=== PATIENT | male | born 1955 | race African-American/Black ===

== ENCOUNTER 2020-04-13 06:55 | Emergency (ER) | payer OTHER, SELFPAY ==
[2020-04-13] MEDS ORDERED: METOPROLOL TARTRATE 5 MG/5 ML INJ IV ONE (07:18)
[2020-04-13 07:21] LABS: Absolute Lymphocytes (CBC) 2.5 K/uL (0.7-4.9); Basophils % 1.7 % (0-1.3); Hematocrit 42.5 % (39.6-49.0); Lymphocytes % 34.7 % (15.3-44.8); MPV 8.8 fL (7.6-11.3); RBC Red Blood Cell Count 5.61 M/uL (4.33-5.43)
[2020-04-13 07:30] LABS: Protime INR 1.09
[2020-04-13] MEDS ORDERED: dilTIAZem HCL 25 MG/5 ML VIAL IV ONE ×2 (07:51→08:10)
[2020-04-13 08:14] LABS: Albumin 3.2 g/dL (3.4-5.0); Bilirubin Direct 0.1 mg/dL (0-0.2); Bilirubin Total 0.4 mg/dL (0.2-1.0); Magnesium 2.1 mg/dL (1.8-2.4); Protein, Total 7.7 g/dL (6.4-8.2); Troponin (Emerg Dept Use Only) 0.11 ng/mL (0.0-0.045)
--- NOTE | 2020-04-13 08:27 | RAD REPORT ---
EXAM DESCRIPTION: [place] Single View04/13/2020 7:45 am CLINICAL HISTORY: Chest pain COMPARISON: none FINDINGS: The lungs appear clear of acute infiltrate. The heart is normal size IMPRESSION: No acute abnormalities displayed
--- NOTE | 2020-04-13 08:27 | ER ---
Nurse's Notes [facility] Name: Taj Penaloza Age: 64 yrs Sex: Male : 1955 Arrival Date: 04/13/2020 Time: 07:01 Bed 16 Private MD: Diagnosis: Atrial fibrillation and flutter;Palpitations Presentation: 04/13 07:03 Ebola Screen: No symptoms or risks identified at this time. ea 07:03 Risk Assessment: Do you want to hurt yourself or someone else? Patient reports no ea desire to harm self or others. 07:13 Chief complaint: EMS states: OUT WORKING IN THE GARDEN, SUDDENLY FELT DIZZY AND LIGHT rv HEADED. DENIES ANY CHEST PAIN OR SOB. INITIAL HEART RATE AT 160s. GIVEN ADENOSINE 6MG IV. Coronavirus screen: Client denies travel out of the [place] in the last 14 days. Initial Sepsis Screen: Does the patient meet any 2 criteria? No. Patient's initial sepsis screen is negative. Does the patient have a suspected source of infection? No. Patient's initial sepsis screen is negative. Onset of symptoms was April 13, 2020 at 06:30. 07:13 Method Of Arrival: EMS: [facility] rv 07:13 Acuity: SEJAL 2 rv Triage Assessment: 07:19 General: Appears comfortable, Behavior is calm, cooperative. Pain: Denies pain. Neuro: rv Level of Consciousness is awake, alert, obeys commands, Oriented to person, place, time, situation. Cardiovascular: Rhythm is SVT. Cardiovascular: Chest pain is denied. Respiratory: Airway is patent Respiratory effort is even, unlabored. Derm: Skin is intact. Historical: - Allergies: 07:19 No Known Allergies; rv - Home Meds: : sildenafil oral 1 tab oral 100 mg as needed [Active]; simvastatin 80 mg Oral tab 80 mg rv daily [Active]; tamsulosin 0.4 mg oral cp24 1 cap once daily [Active]; - PMHx: : Hypertension; High Cholesterol; rv - PSHx: : None; rv - Immunization history:: Adult Immunizations up to date. - Social history:: Smoking status: Patient denies any tobacco usage or history of. Screenin:02 Abuse screen: Denies threats or abuse. Nutritional screening: No deficits noted. ea Tuberculosis screening: No symptoms or risk factors identified. Fall Risk IV access (20 points). Assessment: 07:20 General: Appears in no apparent distress. comfortable, well groomed, Behavior is calm, ph cooperative, appropriate for age, Denies fever, feeling ill. Pain: Denies pain. Neuro: Level of Consciousness is awake, alert, obeys commands, Oriented to person, place, time, situation, Reports dizziness, Denies weakness blurred vision headache. Cardiovascular: Reports fatigue, lightheadedness, Denies chest pain, shortness of breath, Capillary refill < 3 seconds in bilateral fingers Patient's skin is warm and dry. Respiratory: Airway is patent Respiratory effort is even, unlabored, Respiratory pattern is regular, symmetrical. GI: No signs and/or symptoms were reported involving the gastrointestinal system. Derm: Skin is intact, is healthy with good turgor, Skin is pink, warm \T\ dry. Musculoskeletal: Circulation, motion, and sensation intact. Range of motion: intact in all extremities. 07:29 Reassessment: Patient appears in no apparent distress at this time. Patient and/or ph family updated on plan of care and expected duration. Pain level reassessed. Patient is alert, oriented x 3, equal unlabored respirations, skin warm/dry/pink. Pt awake and alert, talking on cell phone, HR remains elevated at 152 after Lopressor 5mg x1, BP 101/80, ERP notified of vitals, will administer a different medication in attempt to lower HR, see MAR. 08:30 Reassessment: Patient appears in no apparent distress at this time. Patient and/or ph family updated on plan of care and expected duration. Pain level reassessed. Patient is alert, oriented x 3, equal unlabored respirations, skin warm/dry/pink. 09:41 Reassessment: Patient appears in no apparent distress at this time. Patient and/or ph family updated on plan of care and expected duration. Pain level reassessed. Patient is alert, oriented x 3, equal unlabored respirations, skin warm/dry/pink. Awaiting acceptance at [facility] for transfer, pt resting quietly, denies pain at this time. 12:27 Reassessment: Patient appears in no apparent distress at this time. Patient and/or ph family updated on plan of care and expected duration. Pain level reassessed. Patient is alert, oriented x 3, equal unlabored respirations, skin warm/dry/pink. Attempted to call report to [facility], no answer at number provided, will attempt again. 12:35 Reassessment: Report called to JINA Fatima at [facility], awaiting EMS for transfer. ph 13:27 Reassessment: [facility] at bedside, report given to EMT-P, pt transferred to [facility]. ph Vital Signs: 07:13 BP 112 / 78; Pulse 158; Resp 21; Temp 97.1; Pulse Ox 96% ; Weight 145.15 kg; rv 07:30 BP 101 / 80; Pulse 146; Resp 18; Pulse Ox 95% on R/A; ph 08:31 BP 94 / 75; Pulse 130; Resp 18; Pulse Ox 97% on 2 lpm NC; ph 09:41 BP 95 / 51; Pulse 151; Resp 16; Pulse Ox 98% on 2 lpm NC; ph 09:54 BP 110 / 83; Pulse 132; Resp 18; Pulse Ox 96% on 2 lpm NC; ph 10:56 BP 129 / 96; Pulse 118; Resp 18; Pulse Ox 98% on 2 lpm NC; ph 11:47 BP 103 / 79; Pulse 122; Resp 20; Pulse Ox 98% on 2 lpm NC; ph 12:15 BP 113 / 70; Pulse 102; Resp 22; Temp 97.5; Pulse Ox 97% on 2 lpm NC; ph 13:24 BP 102 / 57; Pulse 148; Resp 18; Pulse Ox 97% on 2 lpm NC; ph ED Course: 07:01 Patient arrived in ED. rv 07:02 Patient has correct armband on for positive identification. Bed in low position. Call ea light in reach. Side rails up X2. monitoring analyst on. Pulse ox on. NIBP on. 07:03 Arm band placed on right wrist. Patient placed in an exam room, on a stretcher, on ea playground monitor, on pulse oximetry. 07:08 Antoinette Hdz RN is Primary Nurse. ph 07:16 Triage completed. rv 07:18 Alexis Jean MD is Attending Physician. kdr 07:48 XRAY Chest (1 view) In Process Unspecified. EDMS 08:29 initiated a transfer with Debbie from the [facility] transfer center. eb 08:42 faxed over patient records as requested by transfer center/ per Debbie a nurse will call eb back to do nurse to nurse after the chart is reviewed. 10:56 No provider procedures requiring assistance completed. Patient transferred, IV remains ph in place. 11:[address] Doe the emergency room doctor information technology project manager for the [facility] with Dr. Miranda shankar for patient transfer consultation. 11:50 administrative approval given by Renita Barber En/ patient has been accepted to the [facility]. 12:57 Inserted saline lock: 18 gauge in right antecubital area, using aseptic technique. dh3 Administered Medications: 07:20 Drug: Lopressor 5 mg Route: IVP; Site: left antecubital; ph 13:28 Follow up: Response: No adverse reaction; Cardiac rhythm is unchanged ph 08:02 Drug: Diltiazem 5 mg Route: IVP; Site: left hand; ph 08:12 Follow up: Response: No adverse reaction ph 08:54 Drug: Heparin (CO-Bolus No thrombolytic) - HEParin 60 units/kg {Co-Signature: hb ph (Doris Cardenas RN).} Route: IVP; Site: left wrist; 13:28 Follow up: Response: No adverse reaction ph 08:56 Drug: Heparin (CO Drip) 12 units/kg/hr - (HEParin 42135 units, D5W 500 ml) ph {Co-Signature: hb (Doris Cardenas RN).} Route: IV; Rate: calculated rate; Site: left wrist; 13:28 Follow up: IV Status: Infusion continued upon transfer ph 09:40 Drug: Diltiazem 5 mg Route: IVP; Site: left wrist; ph 09:45 Follow up: Response: No adverse reaction ph 10:30 Drug: Diltiazem 10 mg Route: IVP; Site: left wrist; ph 13:27 Follow up: Response: No adverse reaction ph 13:05 Drug: niCARdipine (25mg/250mL) 5 mg/h {Note: iniated at 2 mg/h.} Route: IV; Rate: ph calculated rate; Site: right antecubital; 13:27 Follow up: Response: No adverse reaction; IV Status: Order to discontinue infusion ph Outcome: 08:26 ER care complete, transfer ordered by . kdr 13:29 Transferred by ground EMS [facility]. to [facility] Transfer ph form completed. X-rays sent w/ patient. 13:29 Condition: stable 13:29 Instructed on the need for transfer. 13:33 Patient left the ED. ph Signatures: Dispatcher [employer] Alexis Lemons MD MD kdr Hall, Patricia RN RN [place] [id number] Lili Hernandez RN RN ea Botello, Elizabeth eb Vicente, Ronaldo, RN RN rv Heather Baxter RN hb
--- NOTE | 2020-04-13 08:27 | EDPHYS ---
Physician Documentation [facility] Name: Taj Penaloza Age: 64 yrs Sex: Male : 1955 Arrival Date: 04/13/2020 Time: 07:01 Bed 16 Private MD: ED Physician Alexis Jean HPI: 04/13 08:26 This 64 yrs old Black Male presents to ER via EMS with complaints of AFIB W/RVR. kdr 08:26 The patient presents with a history of irregular heart beat, heart racing. Context: The kdr symptoms occur at rest, during sleep. Onset: The symptoms/episode began/occurred suddenly, Thursday. Duration: The patient or guardian reports multiple episodes. Modifying factors: The symptoms are aggravated by nothing. The symptoms are alleviated by nothing. Associated signs and symptoms: Pertinent positives: chest pain, lightheadedness, SOB. Severity of symptoms: At their worst the symptoms were mild moderate just prior to arrival, this morning, in the emergency department the symptoms are unchanged. The patient has not experienced similar symptoms in the past. The patient has not recently seen a physician. The patient states that he felt he had mild heat stroke on Thursday when he noted his heart racing and chest pressure. He tried to rest and hydrate himself and his symptoms seemed to intermittently improve but hen return. He had gone to work today and thought he might be able to last until Thursday when [facility] persisted. Instead, his symptoms persisted and he ask to be evaluated by the on site medical personnel at work. They discovered him to have a HR of 160 and transported him to the ED while giving him 6 mg of Adenosine. They did not get any improvement with the medication and the patient stated that his symptoms seemed to get worse. He arrived in stable condition and alert and oriented . Historical: - Allergies: 07:19 No Known Allergies; rv - Home Meds: : sildenafil oral 1 tab oral 100 mg as needed [Active]; simvastatin 80 mg Oral tab 80 mg rv daily [Active]; tamsulosin 0.4 mg oral cp24 1 cap once daily [Active]; - PMHx: 07:19 Hypertension; High Cholesterol; rv - PSHx: :19 None; rv - Immunization history:: Adult Immunizations up to date. - Social history:: Smoking status: Patient denies any tobacco usage or history of. ROS: 08:26 Constitutional: Negative for fever, chills, and weight loss, Eyes: Negative for injury, kdr pain, redness, and discharge, ENT: Negative for injury, pain, and discharge, Neck: Negative for injury, pain, and swelling, Respiratory: Negative for shortness of breath, cough, wheezing, and pleuritic chest pain, Abdomen/GI: Negative for abdominal pain, nausea, vomiting, diarrhea, and constipation, Back: Negative for injury and pain, : Negative for injury, bleeding, discharge, and swelling, MS/Extremity: Negative for injury and deformity, Skin: Negative for injury, rash, and discoloration, Neuro: Negative for headache, weakness, numbness, tingling, and seizure activity. Psych: Negative for depression, anxiety, suicide ideation, homicidal ideation, and hallucinations, Allergy/Immunology: Negative for hives, rash, and allergies, Endocrine: Negative for neck swelling, polydipsia, polyuria, polyphagia, and marked weight changes, Hematologic/Lymphatic: Negative for swollen nodes, abnormal bleeding, and unusual bruising. 08:26 Cardiovascular: Positive for chest pain, palpitations, Negative for edema, orthopnea. Exam: 08:26 Constitutional: This is a well developed, well nourished patient who is awake, alert, kdr and in no acute distress. Head/Face: Normocephalic, atraumatic. Eyes: Pupils equal round and reactive to light, extra-ocular motions intact. Lids and lashes normal. Conjunctiva and sclera are non-icteric and not injected. Cornea within normal limits. Periorbital areas with no swelling, redness, or edema. Neck: Trachea midline, no thyromegaly or masses palpated, and no cervical lymphadenopathy. Supple, full range of motion without nuchal rigidity, or vertebral point tenderness. No Meningismus. Chest/axilla: Normal chest wall appearance and motion. Nontender with no deformity. No lesions are appreciated. Respiratory: Lungs have equal breath sounds bilaterally, clear to auscultation and percussion. No rales, rhonchi or wheezes noted. No increased work of breathing, no retractions or nasal flaring. Abdomen/GI: Soft, non-tender, with normal bowel sounds. No distension or tympany. No guarding or rebound. No evidence of tenderness throughout. Back: No spinal tenderness. No costovertebral tenderness. Full range of motion. Skin: Warm, dry with normal turgor. Normal color with no rashes, no lesions, and no evidence of cellulitis. MS/ Extremity: Pulses equal, no cyanosis. Neurovascular intact. Full, normal range of motion. Neuro: Awake and alert, GCS 15, oriented to person, place, time, and situation. Cranial nerves II-XII grossly intact. Motor strength 5/5 in all extremities. Sensory grossly intact. Cerebellar exam normal. Normal gait. Psych: Awake, alert, with orientation to person, place and time. Behavior, mood, and affect are within normal limits. 08:26 Cardiovascular: Rate: tachycardic, actual rate is 155 bpm, Rate is variable, Rhythm: irregular, Pulses: no pulse deficits are appreciated, Heart sounds: normal, Edema: is not appreciated. 09:55 ECG was reviewed by the Attending Physician. kdr Vital Signs: 07:13 BP 112 / 78; Pulse 158; Resp 21; Temp 97.1; Pulse Ox 96% ; Weight 145.15 kg; rv 07:30 BP 101 / 80; Pulse 146; Resp 18; Pulse Ox 95% on R/A; ph 08:31 BP 94 / 75; Pulse 130; Resp 18; Pulse Ox 97% on 2 lpm NC; ph 09:41 BP 95 / 51; Pulse 151; Resp 16; Pulse Ox 98% on 2 lpm NC; ph 09:54 BP 110 / 83; Pulse 132; Resp 18; Pulse Ox 96% on 2 lpm NC; ph 10:56 BP 129 / 96; Pulse 118; Resp 18; Pulse Ox 98% on 2 lpm NC; ph 11:47 BP 103 / 79; Pulse 122; Resp 20; Pulse Ox 98% on 2 lpm NC; ph 12:15 BP 113 / 70; Pulse 102; Resp 22; Temp 97.5; Pulse Ox 97% on 2 lpm NC; ph 13:24 BP 102 / 57; Pulse 148; Resp 18; Pulse Ox 97% on 2 lpm NC; ph MDM: 08:26 Patient medically screened. kdr 08:26 Data reviewed: vital signs, nurses notes, lab test result(s), EKG, radiologic studies. kdr Counseling: I had a detailed discussion with the patient and/or guardian regarding: the historical points, exam findings, and any diagnostic results supporting the discharge/admit diagnosis, lab results, radiology results, the need for further work-up and treatment in the hospital, the need to transfer to another facility. 08:34 ED course: The patient was initially given B-noemi with SBP of 112 (5 mg). Rate did kdr not improve but BP decreased. Chenged to low does Diltiazem which has done a better job of controlling the rate. BP has remained low. 04/13 07:03 Order name: Basic Metabolic Panel; Complete Time: 08:41 04/13 07:03 Order name: CBC with Diff; Complete Time: 08:41 04/13 07:03 Order name: LFT's; Complete Time: 08:41 04/13 07:03 Order name: Magnesium; Complete Time: 08:41 04/13 07:03 Order name: NT PRO-BNP; Complete Time: 08:41 04/13 07:03 Order name: PT-INR; Complete Time: 09:38 04/13 07:03 Order name: Troponin (emerg Dept Use Only); Complete Time: 08:41 04/13 07:03 Order name: XRAY Chest (1 view); Complete Time: 08:41 04/13 08:45 Order name: PTT, Activated Partial Thromb; Complete Time: 09:38 EDMS 04/13 08:48 Order name: Ptt, Activated ph 04/13 07:03 Order name: EKG; Complete Time: 07:04 04/13 07:03 Order name: Cardiac monitoring; Complete Time: 07:04/13 07:03 Order name: EKG - Nurse/Tech; Complete Time: 07:04/13 07:03 Order name: IV Saline Lock; Complete Time: 07:13 04/13 07:03 Order name: Labs collected and sent; Complete Time: 07:13 04/13 07:03 Order name: O2 Per Protocol; Complete Time: 07:04/13 07:03 Order name: O2 Sat Monitoring; Complete Time: 07:13 rv EC:55 Rate is 158 beats/min. Rhythm is regular, Sinus tachycardia with No ectopy. QRS [place] is kdr Normal. AK interval is normal. QRS interval is normal. QT interval is normal. Clinical impression: NSR w/ Non-specific ST/T Changes. 09:55 Rate is 119 beats/min. Rhythm is regular, A flutter with No ectopy. QRS [place] is Normal. kdr [place] interval is normal. QRS interval is normal. Clinical impression: Atrial Flutter, Sinus arrythmia, No evidence of ischemia, and Aatarial fib/flutter witwh variable response. 09:55 Rate is 146 beats/min. Rhythm is regular, A fib with No ectopy. QRS [place] is Normal. AK kdr interval is normal. Clinical impression: Atrial Fibrillation. Administered Medications: 07:20 Drug: Lopressor 5 mg Route: IVP; Site: left antecubital; ph 13:28 Follow up: Response: No adverse reaction; Cardiac rhythm is unchanged ph 08:02 Drug: Diltiazem 5 mg Route: IVP; Site: left hand; ph 08:12 Follow up: Response: No adverse reaction ph 08:54 Drug: Heparin (ND-Bolus No thrombolytic) - HEParin 60 units/kg {Co-Signature: hb ph (Doris Cardenas RN).} Route: IVP; Site: left wrist; 13:28 Follow up: Response: No adverse reaction ph 08:56 Drug: Heparin (ND Drip) 12 units/kg/hr - (HEParin 85420 units, D5W 500 ml) ph {Co-Signature: hb (Doris Cardenas RN).} Route: IV; Rate: calculated rate; Site: left wrist; 13:28 Follow up: IV Status: Infusion continued upon transfer ph 09:40 Drug: Diltiazem 5 mg Route: IVP; Site: left wrist; ph 09:45 Follow up: Response: No adverse reaction ph 10:30 Drug: Diltiazem 10 mg Route: IVP; Site: left wrist; ph 13:27 Follow up: Response: No adverse reaction ph 13:05 Drug: niCARdipine (25mg/250mL) 5 mg/h {Note: iniated at 2 mg/h.} Route: IV; Rate: ph calculated rate; Site: right antecubital; 13:27 Follow up: Response: No adverse reaction; IV Status: Order to discontinue infusion ph Disposition: 04/13/20 08:26 Transfer ordered to [facility]. Diagnosis are Atrial fibrillation and flutter, Palpitations. - Reason for transfer: Higher level of care. - Accepting physician is [facility]: Dr. Velia Fabian. - Condition is Serious. - Problem is new. - Symptoms have improved. Signatures: Dispatcher [employer] EDNJ Alexis Jean MD MD kdr Antoinette Hdz, RN RN ph Doris Cardenas, RN RN Lili Hernandez RN RN ea Evgeny Oconnell RN RN Doris Cardenas RN Corrections: (The following items were deleted from the chart) 11:17 08:49 PTT, Activated Partial Thromb ordered. EDNJ EDNJ 11:50 08:26 04/13/2020 08:26 Transfer ordered to [facility]. Diagnosis kdr is Atrial fibrillation and flutter; Palpitations. Reason for transfer: Higher level of care. Accepting physician is [facility]. Condition is Serious. Problem is new. Symptoms have improved. kdr 13:33 11:50 04/13/2020 08:26 Transfer ordered to [facility]. Diagnosis ph is Atrial fibrillation and flutter; Palpitations. Reason for transfer: Higher level of care. Accepting physician is [facility]: Dr. Velia Fabian. Condition is Serious. Problem is new. Symptoms have improved. kdr
[2020-04-13] MEDS ORDERED: HEPARIN 5000 UNIT/ML 1 ML VIAL ONE (08:52)
[2020-04-13] MEDS ORDERED: HEPARIN/D5W 25,000 UNIT/500 ML BAG IV ONE (08:53)
[2020-04-13] MEDS ORDERED: NICARDIPINE HCL 25 MG in NA CHLORIDE 0.9% 240 ML IV PRN (12:44)
[2020-04-13 13:52] VITALS: TEMP 97.5; O2SAT 97
[2020-04-13 13:53] VITALS: BP 102/57
--- NOTE | 2020-04-14 08:12 | EKG ---
Test Date: 2020-04-13 Test Time: 06:55:02 Air Conditioning Installer Supervisor: CHITO MEASUREMENT RESULTS: Intervals: Rate: 158 CO: 112 QRSD: 142 QT: 308 QTc: 499 [place]: P: CO: 112 QRS: 8 T: 250 INTERPRETIVE STATEMENTS: possible atrial flutter Nonspecific intraventricular block T wave abnormality, consider inferior ischemia T wave abnormality, consider anterior ischemia Abnormal ECG Compared to ECG 02/06/2003 14:43:00 T-wave abnormality now present Possible ischemia now present Sinus rhythm no longer present Electronically Signed On 04-14-20 08:10:26 CDT by Nate Jimenez
--- NOTE | 2020-04-15 15:36 | EKG ---
Test Date: 2020-04-13 Test Time: 08:20:15 Product Grader: PH MEASUREMENT RESULTS: Intervals: Rate: 119 RI: 186 QRSD: 80 QT: 344 QTc: 483 [place]: P: 79 RI: 186 QRS: 38 T: 79 INTERPRETIVE STATEMENTS: atrial flutter Low voltage QRS Compared to ECG 04/13/2020 06:55:02 Low QRS voltage now present ST (T wave) deviation now present Myocardial infarct finding now present T-wave abnormality no longer present Possible ischemia no longer present Electronically Signed On 04-15-20 15:35:29 CDT by Nate Jimenez
== END 2020-04-13 13:33 ==
LOC: ER 06:55
DX: I48.91 Unspecified atrial fibrillation (principal); I48.92 Unspecified atrial flutter; R00.2 Palpitations; I10 Essential (primary) hypertension; E78.00 Pure hypercholesterolemia, unspecified
CPT/HCPCS: 93005 ×2; 85025; 80048; 36415; 83735; 85610; 80076; 85730; 84484; 83880; 71045; 99285; J1644 ×2; J7050; 96365; 96366; 96368; 96375